=== PATIENT | female | born 1995 | race Two or more races ===

== ENCOUNTER 2022-04-24 23:25 | Observation (INO) | payer MEDICARE, MEDICAID ==
[~2022-04-24] VITALS: Ht 162.6 cm; Wt 99.8 kg
[2022-04-25] MEDS ORDERED: PREN-96 PO (00:18)
== END 2022-04-25 01:30 | disposition home or self-care (01) ==
LOC: LDRP 23:25
PROVIDERS: ADMIT Obstetrics & Gynecology Obstetrics; ATTEND Obstetrics & Gynecology Obstetrics
DX: O62.9 Abnormality of forces of labor, unspecified (principal); Z3A.40 40 weeks gestation of pregnancy
CPT/HCPCS: 59025; 81002; 94760; G0378

== ENCOUNTER 2022-04-30 23:46 | Inpatient (IN) | payer MEDICARE, MEDICAID ==
[~2022-04-30] VITALS: Ht 167.6 cm; Wt 81.6 kg
[~2022-04-30 23:46] MED LIST: PREN-96 PO
[2022-05-01] MEDS ORDERED: PHISODERM TOP SOLN 240ML BTL TOP PRN (01:00)
[2022-05-01] MEDS ORDERED: WITCH HAZEL-GLYCERIN PAD TOP PRN (01:00)
[2022-05-01] MEDS ORDERED: PENICILLIN G POT 5MIL/D5 50ML 50 ML IV ONE (01:00)
[2022-05-01] MEDS ORDERED: LIDOCAINE 2%HCL (LOCAL ANESTH.) INJ 20ML MDV IJ PRN (01:00)
[2022-05-01] MEDS ORDERED: PROMETHAZINE HCL 25 MG/ML 1ML IV PRN (01:00)
[2022-05-01] MEDS ORDERED: BUTORPHANOL TARTRATE 2 MG/1 ML VIAL IV PRN ×2 (01:00)
[2022-05-01] MEDS ORDERED: DERMOPLAST 60ML BOTTLE TOP PRN (01:00)
[2022-05-01] MEDS ORDERED: LACTATED RINGER'S 1,000 ML IV SCH (01:00)
[2022-05-01] MEDS ORDERED: LACT. RINGERS/OXYTOCIN 20UNITS 1,000 ML IV ONE (01:40)
[2022-05-01 03:08] LABS: Basophils # (auto) 0 10 ^3/uL (0-0.2); Basophils % (auto) 0.4 % (0.0-2.0); Eosinophils # (auto) 0 10 ^3/uL (0-0.8); Eosinophils % (auto) 0.2 % (0.0-7.0); Hematocrit 32.7 % (36.0-46.0); Hemoglobin 10.5 g/dL (12.2-16.2); Lymphocytes # (auto) 1.4 10 ^3/uL (0.4-5.4); Lymphocytes % (auto) 12.1 % (10.0-50.0); Mean Corpuscular Hgb Conc. 32.2 g/dL (32.0-36.0); Monocytes # (auto) 0.4 10 ^3/uL (0-1.3); Monocytes % (auto) 3.9 % (0.0-12.0); Neutrophils # (auto) 9.5 10 ^3/uL (1.6-8.6); Neutrophils % (auto) 83.4 % (37.0-80.0); Nucleated Red Blood Cells % 0.1 %; Red Blood Cells 3.89 10^6/uL (4.0-5.20); Red Cell Distribution Width 17.1 % (11.8-14.3); White Blood Cell 11.4 10^3/uL (4.4-10.8)
[2022-05-01 03:21] LABS: INR 0.92 (0.9-1.15); Partial Thromboplastin Time 25.6 sec (24.6-33.4)
[2022-05-01 03:28] LABS: Albumin 2.7 g/dL (3.4-5.0); Calcium 8.5 mg/dL (8.5-10.1); Potassium 3.9 mmol/L (3.5-5.1)
[2022-05-01] MEDS ORDERED: LACT. RINGERS/OXYTOCIN 20UNITS 500 ML IV ONE ×2 (03:30→04:00)
[2022-05-01] MEDS ORDERED: ACETAMINOPHEN 325 MG TAB PO PRN (03:30)
[2022-05-01] MEDS ORDERED: ONDANSETRON ODT 4 MG TAB PO PRN (03:30)
[2022-05-01 03:32] LABS: Bilirubin, Total 0.3 mg/dL (0.2-1.0); Total Protein 7.2 g/dL (6.4-8.2)
[2022-05-01] MEDS ORDERED: PENICILLIN G POTASSIUM 2,500,000 UNITS in D5W 5% 50 ML IV SCH (05:00)
[2022-05-01 06:33] LABS: Amphetamine Screen, Urine NEGATIVE (NEGATIVE); Barbiturate Scree,Urine NEGATIVE (NEGATIVE); Benzodiazephine Screen, Urine NEGATIVE (NEGATIVE); Cannabinoid Screen, Urine NEGATIVE (NEGATIVE); Cocaine Screen, Urine NEGATIVE (NEGATIVE); Opiate Scree,Urine NEGATIVE (NEGATIVE)
[2022-05-01 06:38] LABS: Phencyclidine Screen, Urine NEGATIVE (NEGATIVE); Urine Bacteria NONE SEEN /hpf (None Seen); Urine Blood 3+ /uL (Negative); Urine Mucus FEW (None Seen); Urine Specific Gravity 1.019 (1.001-1.035); Urine WBC 448 /hpf (0 - 5); Urine WBC Clumps PRESENT /hpf (None Seen)
[2022-05-01 07:13] VITALS: BP 98/77
[2022-05-01 11:00] VITALS: BP 120/78
[2022-05-01 15:30] VITALS: BP 129/76
[2022-05-01] MEDS: IBUPROFEN 800 MG TAB PO PRN (17:31)
[2022-05-01 19:30] VITALS: BP 127/82
[2022-05-01] MEDS ORDERED: DOCUSATE SOD 100 MG CAP PO SCH (22:00)
[2022-05-01 23:25] VITALS: BP 104/52
[2022-05-02] MEDS: IBUPROFEN 800 MG TAB PO PRN (02:14)
[2022-05-02 03:00] VITALS: BP 111/51
[2022-05-02 07:00] VITALS: BP 111/49
[2022-05-02 07:06] LABS: RPR Non Reactive (Non Reactive)
[2022-05-02] MEDS ORDERED: INFLUENZA QUAD 2022-2023 0.5 ML SYRG IM ONE (07:15)
[2022-05-02 08:06] LABS: Rubella Antibodies, IgG 2.37 index (Immune >0.99)
[2022-05-02 10:58] VITALS: BP 118/56
== END 2022-05-02 11:48 | disposition home or self-care (01) | DRG 807 ==
LOC: LDRP 23:46 → OBSVTOIN 05-01 00:15 → LDRP 05-01 01:04
PROVIDERS: ADMIT Obstetrics & Gynecology; ATTEND Obstetrics & Gynecology
PROC: 10E0XZZ Delivery of Products of Conception, External Approach (ICD-10-PCS; principal; 2022-05-01)
PROC: 3E02340 Introduction of Influenza Vaccine into Muscle, Percutaneous Approach (ICD-10-PCS; 2022-05-02)
DX: O48.0 Post-term pregnancy (principal); Z37.0 Single live birth; Z3A.41 41 weeks gestation of pregnancy; Z23 Encounter for immunization
CPT/HCPCS: 36415; 59025; 59409; 80053; 80307; 81001; 85025; 85610; 85730; 86592; 86703; 86762; 86850; 86900; 86901; 87340; 90686; 94760; 96360; 96361; 96365; 96366; 96372; G0378; J2590; J7060